=== PATIENT | female | born 1950 | race Caucasian/White ===

== ENCOUNTER 2016-12-23 18:39 | Emergency (ER) | payer MEDICARE, MEDICAID ==
[2016-12-23] MEDS ORDERED: NS 0.9% 1000 ML* 1,000 ML IV ONE (19:39)
--- NOTE | 2016-12-23 20:29 | ED ---
Kel Bonner Adam, scribed for Jerome Broderick MD on 12/23/16 at 1942 . Complex/Multi-Sys Presentation - HPI Summary HPI Summary: Pt is a 66 year old female presenting with general malaise and multiple complaints for over a week. She c/o nausea, AGUILAR, weakness, fatigue, dizziness, abdominal pain/distension, BLE cramps, and a taste of ammonia in her mouth. She states that the abdominal pain feels like a "high girdle wrapping under (her) breasts" and is worse on the left side. The pain is worse after eating. She denies fever. Pt has Hx of lupus and she last saw her doctor at [facility] 5 months ago. She also takes hydrocodone for chronic back pain/fibromyalgia. - History Of Current Complaint Chief Complaint: EDAbdPain Time Seen by Provider: 12/23/16 19:31 Hx Obtained From: Patient Onset/Duration: Gradual Onset, Lasting Weeks, Still Present Timing: Constant Severity Currently: Moderate Severity Initially: Moderate Location: Pain At: - Head, abdomen, lower extremities Aggravating Factor(s): Eating aggravates abdominal pain Alleviating Factor(s): Nothing Associated Signs And Symptoms: Positive: Headache, Nausea, Abdominal Pain - Allergies/Home Medications Allergies/Adverse Reactions: Allergies Allergy/AdvReac Type Severity Reaction Status Date / Time Clarithromycin [From Biaxin] Allergy Unknown Verified 05/20/16 11:30 Reaction Details Cyclobenzaprine Allergy Unknown Verified 05/20/16 11:30 [From Flexeril] Reaction Details Gabapentin Allergy Insomnia Verified 05/20/16 11:30 Meperidine [From Demerol HCl] Allergy Unknown Verified 05/20/16 11:30 Reaction Details Morphine Allergy Unknown Verified 05/20/16 11:30 Reaction Details Oxycodone Allergy Hives Verified 05/20/16 11:30 [From Oxycodone W/Acetaminophen] Prednisone Allergy See Comment Verified 05/20/16 11:30 Topiramate Allergy Unknown Verified 05/20/16 11:30 Reaction Details PMH/Surg Hx/FS Hx/Imm Hx Endocrine/Hematology History: Reports: Hx Systemic Lupus Erythematosus Denies: Hx Anticoagulant Therapy, Hx Diabetes, Hx Thyroid Disease Cardiovascular History: Reports: Hx Angina Denies: Hx Coronary Artery Disease, Hx Hypercholesterolemia, Hx Hypertension , Hx Myocardial Infarction, Hx Pacemaker/ICD, Hx Valvular Heart Disease Respiratory History: Denies: Hx Asthma, Hx Chronic Obstructive Pulmonary Disease (COPD) GI History: Reports: Hx Gastroesophageal Reflux Disease History: Denies: Hx Renal Disease Musculoskeletal History: Reports: Hx Back Problems Neurological History: Denies: Hx Dementia, Hx Seizures Psychiatric History: Reports: Hx Eating Disorder - anorexic; pt stated this is not happening now Denies: Hx Substance Abuse - Cancer History Cancer Type, Location and Year: breast CA; x2 mastectomy on left breast; lumpectomy and reduction - Surgical History Surgery Procedure, Year, and Place: Breast removal and augmentation. Back surgery. Scalp surgery to remove skin cancer. Wrist surgery for ulnarneuropathy - Immunization History Date of Tetanus Vaccine: UNKNOWN Date of Influenza Vaccine: NO Infectious Disease History: No Infectious Disease History: Reports: Hx Shingles - not active. "just getting over" Denies: Hx Hepatitis, Hx Human Immunodeficiency Virus (HIV), Traveled Outside the [place] in Last 30 Days - Family History Known Family History: Positive: Diabetes, Renal Disease - Social History Occupation: Unemployed Lives: With Family - Friend male Alcohol Use: None Hx Substance Use: No Substance Use Type: Reports: None Hx Tobacco Use: Yes Smoking Status (MU): Heavy Every Day Tobacco Smoker Type: Cigarettes Review of Systems Positive: Fatigue. Negative: Fever Positive: Abdominal Pain - and distension, Nausea Positive: Other - Cramps in lower extremities Neurological: Other - Dizziness Positive: Headache, Weakness All Other Systems Reviewed And Are Negative: Yes Physical Exam Triage Information Reviewed: Yes Vital Signs On Initial Exam: Initial Vitals Temp Pulse Resp BP Pulse Ox 98.2 F 105 18 120/72 100 12/23/16 18:43 12/23/16 18:43 12/23/16 18:43 12/23/16 18:43 12/23/16 18:43 Vital Signs Reviewed: Yes Appearance: Positive: Well-Appearing, No Pain Distress Skin: Positive: Warm Head/Face: Positive: Normal Head/Face Inspection Eyes: Positive: EDWARD ENT: Positive: Hearing grossly normal Neck: Positive: Supple Respiratory/Lung Sounds: Positive: Clear to Auscultation, Breath Sounds Present Cardiovascular: Positive: RRR Abdomen Description: Positive: Nontender, No Organomegaly, Soft Bowel Sounds: Positive: Present Musculoskeletal: Positive: Strength/ROM Intact Neurological: Positive: Sensory/Motor Intact, Alert, Oriented to Person Place, Time Psychiatric: Positive: Affect/Mood Appropriate Diagnostics - Vital Signs Vital Signs Temp Pulse Resp BP Pulse Ox 12/23/16 18:43 98.2 F 105 18 120/72 100 - Laboratory Result Diagrams: 12/23/16 21:50 12/23/16 21:50 Lab Statement: Any lab studies that have been ordered have been reviewed, and results considered in the medical decision making process. - EKG 22:37 Cardiac Rate: NL - 80 BPM EKG Rhythm: Sinus Rhythm - Normal - Additional Comments Diagnostic Additional Comments: Troponin I - 0.01 Influenza A (Rapid) - Negative Influenza B (Rapid) - Negative Re-Evaluation - Re-Evaluation First Eval Re-Evaluation Time: 22:48 Change: Improved Comment: results d/w pt Complex Multi-Symp Course/Dx - Diagnoses Provider Diagnoses: Abdominal pain Discharge - Discharge Plan Condition: Improved Disposition: HOME Patient Education Materials: Abdominal Pain (ED) Referrals: Dre Caicedo MD [Medical Doctor] - Additional Instructions: Follow up with Dr. Caicedo. The documentation as recorded by the Kel cadet Adam accurately reflects the service I personally performed and the decisions made by me, Jerome Broderick MD.
[2016-12-23 22:06] LABS: Hematocrit 42 % (35-47); Hemoglobin 13.6 g/dl (12.0-16.0); Mean Corpuscular HGB Conc 32 g/dl (31-36); Mean Corpuscular Hemoglobin 28 pg (27-31); Mean Corpuscular Volume 86 fL (80-97); Mean Platelet Volume 8 um3 (7.4-10.4); Red Blood Count 4.88 10^6/ul (4.0-5.4); Red Cell Distribution Width 14 % (10.5-15); White Blood Count 8.3 10^3/ul (3.5-10.8)
[2016-12-23 22:18] LABS: Troponin I 0.01 ng/mL (<0.04)
[2016-12-23 22:26] LABS: Albumin 4.4 g/dL (3.2-5.2); Calcium 10.2 mg/dL (8.6-10.3); EGFR African American 91.3 (>60); Globulin 3.3 g/dL (2-4); Magnesium 2.1 mg/dL (1.9-2.7); Potassium 4.3 mmol/L (3.5-5.0); Total Bilirubin 0.3 mg/dL (0.2-1.0); Total Protein 7.7 g/dL (6.4-8.9)
[2016-12-23 22:53] LABS: TSH (Thyroid Stimulating Horm) 0.87 mcIU/mL (0.34-5.60)
[2016-12-24 00:21] VITALS: BP 130/74
== END 2016-12-24 00:19 | disposition home or self-care (01) ==
LOC: ED 18:39
DX: R11.0 Nausea (principal); R10.9 Unspecified abdominal pain; R53.83 Other fatigue; R51 Headache; R53.1 Weakness; F17.210 Nicotine dependence, cigarettes, uncomplicated
CPT/HCPCS: 36415; 80053; 83605; 83735; 84443; 84484; 85025; 87502; 93005; 99282

== ENCOUNTER 2017-06-21 09:51 | Emergency (ER) | payer MEDICARE, MEDICAID ==
[2017-06-21 09:58] VITALS: BP 144/81
--- NOTE | 2017-06-21 11:11 | RAD ---
INDICATION: LEFT lateral and posterior chest/scapular pain and painful inspiration post fall several days ago. COMPARISON: February 23, 2014 chest radiograph. TECHNIQUE: Dual energy PA and routine lateral views of the chest were obtained. REPORT: Elevated lung volumes and both diffuse mild prominence of the interstitial markings and patchy rarefaction of the mid to upper lung zone interstitial markings. No focal pulmonary lesion, compelling alveolar consolidation, pleural effusion, pneumothorax. Negative for cardiomegaly. Unremarkable central pulmonary vasculature. Bone density appears decreased throughout. No rib or other thoracic fracture evident. LEFT breast and axillary surgical clips. IMPRESSION: 1. No traumatic thoracic injury evident. 2. Stigmata of chronic obstructive pulmonary disease and emphysema. 3. Bone density appears decreased. Consider follow-up DEXA scan.
--- NOTE | 2017-06-21 12:28 | ED ---
Talia Bonner Emily, scribed for Rickey Nicholson MD on 06/21/17 at 1013 . Complex/Multi-Sys Presentation - HPI Summary HPI Summary: This patient is a 66 year old F presenting to [facility] s/p a fall 4 days ago. She fell chest first while walking her dog. The pain radiates through her left breast, upper, middle back, and left flank. She describes the pain as it felt like when I fractured my rib. The patient rates the pain 8/10 in severity. Symptoms alleviated by Ibuprofen. Patient reports CP (left and posterior), dyspnea (sharp pain on left side), constipation, left shoulder pain, and left shoulder swelling. - History Of Current Complaint Chief Complaint: EDChestWallPain Time Seen by Provider: 06/21/17 10:08 Hx Obtained From: Patient Onset/Duration: Sudden Onset, Lasting Days - 4, Still Present Timing: Constant Severity Currently: Severe Severity Initially: Severe Location: Radiates To: - Left breast, upper middle back, left flank. Alleviating Factor(s): Ibuprofen Associated Signs And Symptoms: Positive: Other - CP (left and posterior), dyspnea (sharp pain on left side), constipation, left shoulder pain, left shoulder swelling. - Allergies/Home Medications Allergies/Adverse Reactions: Allergies Allergy/AdvReac Type Severity Reaction Status Date / Time Clarithromycin [From Biaxin] Allergy Unknown Verified 05/20/16 11:30 Reaction Details Cyclobenzaprine Allergy Unknown Verified 05/20/16 11:30 [From Flexeril] Reaction Details Gabapentin Allergy Insomnia Verified 05/20/16 11:30 Meperidine [From Demerol HCl] Allergy Unknown Verified 05/20/16 11:30 Reaction Details Morphine Allergy Unknown Verified 05/20/16 11:30 Reaction Details Oxycodone Allergy Hives Verified 05/20/16 11:30 [From Oxycodone W/Acetaminophen] Prednisone Allergy See Comment Verified 05/20/16 11:30 Topiramate Allergy Unknown Verified 05/20/16 11:30 Reaction Details PMH/Surg Hx/FS Hx/Imm Hx Endocrine/Hematology History: Reports: Hx Systemic Lupus Erythematosus Denies: Hx Anticoagulant Therapy, Hx Diabetes, Hx Thyroid Disease Cardiovascular History: Reports: Hx Angina Denies: Hx Coronary Artery Disease, Hx Hypercholesterolemia, Hx Hypertension , Hx Myocardial Infarction, Hx Pacemaker/ICD, Hx Valvular Heart Disease Respiratory History: Denies: Hx Asthma, Hx Chronic Obstructive Pulmonary Disease (COPD) GI History: Reports: Hx Gastroesophageal Reflux Disease History: Denies: Hx Renal Disease Musculoskeletal History: Reports: Hx Back Problems Neurological History: Denies: Hx Dementia, Hx Seizures Psychiatric History: Reports: Hx Eating Disorder - anorexic; pt stated this is not happening now Denies: Hx Substance Abuse - Cancer History Cancer Type, Location and Year: breast CA; x2 mastectomy on left breast; lumpectomy and reduction - Surgical History Surgery Procedure, Year, and Place: Breast removal and augmentation. Back surgery. Scalp surgery to remove skin cancer. Wrist surgery for ulnarneuropathy - Immunization History Date of Tetanus Vaccine: UNKNOWN Date of Influenza Vaccine: NO Infectious Disease History: Reports: Hx Shingles - not active. "just getting over" Denies: Hx Hepatitis, Hx Human Immunodeficiency Virus (HIV), Traveled Outside the [place] in Last 30 Days - Family History Known Family History: Positive: Diabetes, Renal Disease - Social History Alcohol Use: None Hx Substance Use: No Substance Use Type: Reports: None Hx Tobacco Use: Yes Smoking Status (MU): Heavy Every Day Tobacco Smoker Type: Cigarettes Review of Systems Positive: Chest Pain Positive: Other - Dyspnea. Positive: Other - Constipation. Positive: Other - Fall, left shoulder pain. Left shoulder swelling. All Other Systems Reviewed And Are Negative: Yes Physical Exam Triage Information Reviewed: Yes Vital Signs On Initial Exam: Initial Vitals Temp Pulse Resp BP Pulse Ox 97.6 F 80 19 144/81 100 06/21/17 09:53 06/21/17 09:53 06/21/17 09:53 06/21/17 09:53 06/21/17 09:53 Vital Signs Reviewed: Yes Appearance: Positive: Well-Appearing, No Pain Distress Skin: Positive: Warm, Skin Color Reflects Adequate Perfusion, Dry Head/Face: Positive: Normal Head/Face Inspection Eyes: Positive: Normal ENT: Positive: Normal ENT inspection Neck: Positive: Supple, Nontender Respiratory/Lung Sounds: Positive: Clear to Auscultation, Breath Sounds Present Cardiovascular: Positive: RRR Abdomen Description: Positive: Nontender, Soft Bowel Sounds: Positive: Present Musculoskeletal: Positive: Other - Tenderness at anterior and lateral chest wall. Neurological: Positive: Normal, Sensory/Motor Intact, Alert, Oriented to Person Place, Time, CN Intact II-III Psychiatric: Positive: Affect/Mood Appropriate Diagnostics - Vital Signs Vital Signs Temp Pulse Resp BP Pulse Ox 06/21/17 09:53 97.6 F 80 19 144/81 100 - Laboratory Lab Statement: Any lab studies that have been ordered have been reviewed, and results considered in the medical decision making process. - Radiology CXR Radiology Interpretation Completed By: Radiologist - 1. No traumatic thoracic injury evident. 2. Stigmata of chronic obstructive pulmonary disease and emphysema. 3. Bone density appears decreased. Consider follow-up DEXA scan. ED physician has reviewed this radiology report and agrees. Complex Multi-Symp Course/Dx Course Of Treatment: MS. Schneider fell 4 days ago and hit the left side of her chest. It has been getting worse since and has affected her breathing. Her W/ U was negative here and her vitals stable and she was reassured. - Diagnoses Provider Diagnoses: Chest wall pain, Rib injury Discharge - Discharge Plan Condition: Stable Disposition: HOME Patient Education Materials: Chest Wall Pain (ED), Rib Contusion (ED) Referrals: Dre Caicedo MD [Primary Care Provider] - 3 Days The documentation as recorded by the Talia cadet Emily accurately reflects the service I personally performed and the decisions made by me, Rickey Nicholson MD.
== END 2017-06-21 12:07 | disposition home or self-care (01) ==
LOC: ED 09:51
DX: R07.89 Other chest pain (principal); S29.9XXA Unspecified injury of thorax, initial encounter; Y92.9 Unspecified place or not applicable; Y93.9 Activity, unspecified; W19.XXXA Unspecified fall, initial encounter; M79.89 Other specified soft tissue disorders; R06.00 Dyspnea, unspecified; K59.00 Constipation, unspecified; M25.512 Pain in left shoulder
CPT/HCPCS: 71020; 99281

== ENCOUNTER → 2017-07-23 11:43 | Day surgery (SDC) | payer MEDICARE, MEDICAID ==
[~2017-07-23 11:43] MED LIST: Bacitracin OINTMENT* 1 TUBE ONE; Buffered Lidocaine 0.9% SYRIN* 5 ML/SYR SYRINGE INTRADERM ONE; Buffered Lidocaine 0.9% SYRIN* 5 ML/SYR SYRINGE ONE; Famotidine IV* 10 MG/ML 2 ML (20 mg) IV ONE; Famotidine IV* 10 MG/ML 2 ML (20 mg) ONE; HYDROcodone/ACETAMIN 5-325 MG* 1 TAB ONE; HYDROcodone/ACETAMIN 5-325 MG* 1 TAB PO PRN; Hydrocortisone INJ* 100 MG VIAL IV ONE; Hydrocortisone INJ* 100 MG VIAL ONE; Lidocaine 1% MPF wEPI 200,000* 30 ML SDV ONE; Lidocaine 4% TOPICAL* 50 ML TOP.SOLN ONE; Ondansetron INJ* 2 MG/ML VIAL ONE; Oxymetazoline 0.05% NASAL SPR* 15 ML BTL ONE; PROCHLORPERAZINE INJ 5 MG/ML 2 ML VIAL IV PRN; Phenylephrine IV* 40 MCG/ML 10 ML SYRINGE ONE; Propofol* 10 MG/ML 20 ML BTL IV PUSH ONE; fentaNYL* 50 MCG/ML 2 ML VIAL (100 MCG VIAL) IV PRN; fentaNYL* 50 MCG/ML 2 ML VIAL (100 MCG VIAL) ONE
[2017-07-23 15:02] VITALS: BP 149/78
--- NOTE | 2017-07-24 01:02 | OP ---
DATE OF OPERATION: 07/23/17 - SDS DATE OF : 52 SURGEON: Gareth Seay MD. ANESTHESIOLOGIST: Wanda Oreilly MD ANESTHESIA: General laryngeal mask anesthesia. PRE-OP DIAGNOSIS: Chronic maxillary ethmoidal sinusitis. POST-OP DIAGNOSIS: Chronic maxillary ethmoidal sinusitis. OPERATIVE PROCEDURE: Bilateral endoscopic sinus surgery with maxillary antrostomies with debridement of tissue and anterior ethmoidectomies under general laryngeal mask anesthesia. COMPLICATIONS: None. SPECIMENS: Left and right sinus contents. DESCRIPTION OF PROCEDURE: The patient was taken to the operating room, placed in a supine position on the operating room table, maintained with laryngeal mask airway anesthesia. Her noses were packed bilaterally with cottonoids impregnated with oxymetazoline and 4% lidocaine. She was draped for the surgery. The packs were removed and everything was done under endoscopic guidance bilaterally. The middle turbinate uncinate process, lateral wall, anterior ethmoid bullae were all injected with 1% lidocaine with 1:100,000 epinephrine and the middle turbinates were medialized. A curved seeker was used to the location of the maxillary ostium. The back-biter was used to make a cut on the low portion of the uncinate process. The up-biters were used to debride the uncinate process. Some thickened mucosa was used to widen the ostium of the maxillary sinus. A curette was used to enter the anterior ethmoid bulla and the spicules were debrided with a Blakesley. Stammberger Sinu- Foam was placed bilaterally in the ostiomeatal unit. The patient tolerated the procedure well, no complications, and transferred to the recovery room in stable condition. [id number]/[facility] #: [id number] [facility]
== END | disposition home or self-care (01) ==
LOC: OR 11:43
PROVIDERS: ATTEND Otolaryngology
DX: J32.0 Chronic maxillary sinusitis (principal); J32.2 Chronic ethmoidal sinusitis; I10 Essential (primary) hypertension; J44.9 Chronic obstructive pulmonary disease, unspecified; F17.210 Nicotine dependence, cigarettes, uncomplicated; M32.9 Systemic lupus erythematosus, unspecified
CPT/HCPCS: A9270-GY; J1720; J2001; J2405; J2704; J3010

== ENCOUNTER → 2019-07-11 | Day surgery (SDC) | payer MEDICARE, MEDICAID ==
[~2019-07-11] MED LIST changes: -Bacitracin OINTMENT* 1 TUBE ONE; -Buffered Lidocaine 0.9% SYRIN* 5 ML/SYR SYRINGE INTRADERM ONE; -Buffered Lidocaine 0.9% SYRIN* 5 ML/SYR SYRINGE ONE; +Bupivacaine 0.25% W/EPI* 10 ML SDV ONE; +Dexamethasone IV* 4 MG/ML 1 ML (4 MG) ONE; +DiMENhydriNATE IV* 50 MG/ML VIAL IV PUSH PRN; -Famotidine IV* 10 MG/ML 2 ML (20 mg) IV ONE; +HYDROmorphone INJ1* 1 MG/ML SYRINGE IV PRN; +HYDROmorphone INJ1* 1 MG/ML SYRINGE IV SLOW PU PRN; -Hydrocortisone INJ* 100 MG VIAL IV ONE; -Hydrocortisone INJ* 100 MG VIAL ONE; +Iohexol 300* (CONTRAST) 10 ML SDV IV ONE; +KETAMINE HCL* 50 MG/ML 10 ML VIAL ONE; +Lactated Ringers 1000 ML Bag* 1,000 ML IV SCH; -Lidocaine 1% MPF wEPI 200,000* 30 ML SDV ONE; +Lidocaine 2% PF * 5 ML VIAL ONE; -Lidocaine 4% TOPICAL* 50 ML TOP.SOLN ONE; +Midazolam* 1 MG/ML 5 ML VIAL (5 MG) ONE; +Morphine 4 MG/ML VIAL (1 ml) 4 MG/ML VIAL IV ONE; +NS 0.9% 1000 ML** 1,000 ML IV ONE; +Naloxone* 0.4 MG/ML 1 ML VIAL IV PRN; +Ondansetron INJ* 2 MG/ML VIAL IV PRN; -Ondansetron INJ* 2 MG/ML VIAL ONE; -Oxymetazoline 0.05% NASAL SPR* 15 ML BTL ONE; +PROCHLORPERAZINE INJ 5 MG/ML 2 ML VIAL ONE; -Phenylephrine IV* 40 MCG/ML 10 ML SYRINGE ONE; -Propofol* 10 MG/ML 20 ML BTL IV PUSH ONE; +Propofol* 10 MG/ML 20 ML BTL ONE; +Rocuronium* 10 MG/ML VIAL ONE; +Sugammadex * 500 MG/5 ML VIAL IV PUSH ONE; +ceFOXitin 2 GM IVPREMIX* 2 GM/50 ML BAG IVPB ONE; +ceFOXitin 2 GM IVPREMIX* 2 GM/50 ML BAG ONE; -fentaNYL* 50 MCG/ML 2 ML VIAL (100 MCG VIAL) IV PRN
[2019-07-11 12:49] LABS: ABS Eosinophils 0.2 10^3/ul (0-0.6); ABS Lymphocytes 1.4 10^3/ul (1.0-4.8); ABS Monocytes 0.7 10^3/ul (0-0.8); Eosinophil % 2.2 %; Hematocrit 37 % (35-47); Hemoglobin 12.2 g/dL (12.0-16.0); Lymphocyte % 13.6 %; Mean Corpuscular HGB Conc 33 g/dL (31-36); Mean Corpuscular Hemoglobin 29 pg (27-31); Mean Corpuscular Volume 87 fL (80-97); Mean Platelet Volume 8.6 fL (7.4-10.4); Platelet Count 243 10^3/uL (150-450); Red Blood Count 4.23 10^6 /uL (3.70-4.87); Red Cell Distribution Width 14 % (10-15); White Blood Count 10.3 10^3/uL (3.5-10.8)
[2019-07-11 13:04] LABS: Albumin 3.9 g/dL (3.2-5.2); Albumin/Globulin Ratio 1.5 (1-3); C Reactive Protein 36.3 mg/L (<8.01); Calcium 9.4 mg/dL (8.6-10.3); EGFR African American 96.2 (>60); EGFR Non-African American 79.5 (>60); Globulin 2.6 g/dL (2-4); Potassium 3.9 mmol/L (3.5-5.0); Total Bilirubin 0.5 mg/dL (0.2-1.0); Total Protein 6.5 g/dL (6.4-8.9)
--- OUTSIDE RECORDS SUMMARY | 2019-07-11 13:08 | XMS REPORT | Summary of Care ---
:1950 Author Organization [facility] Address [address] [facility] [place] [address] Care Team Providers Name Role Phone Dre Caicedo MD Primary Care Provider Reason for Visit Reason Comments Follow-up Follow-up to recent upper & lower endoscopies. Encounter Details Date Type Department Care Team Description 05/31/2019 Office Visit Angie Roberts Drug-induced Gastroenterology/Hepa Yumiko Toro NP constipation (Primary tology 1 [facility] Dx) [address] [facility] [place] [address] [place], [place] [id number] Allergies Active Allergy Reactions Severity Noted Date Comments Clarithromycin Other 05/04/2008 Demerol Other 11/17/2007 Cyclobenzaprine Other 08/08/2013 Morphine CORPORATE STRATEGY ASSOCIATE Reaction 04/24/2010 Vision bad; lethargy - muscles shake Alc-Gabapentin Unknown Reaction 09/30/2007 Fd&C Blue #2-Fd&C Red Unknown Reaction 09/30/2007 CHEST / AIRWAY #40-Oxycodone TIGHTNESS RASH Soybean Lecithin-Topiramate CORPORATE STRATEGY ASSOCIATE Reaction 07/25/2010 depression documented as of this encounter (statuses as of 06/01/2019) Medications Medication Sig Dispensed Refills Start Date End Date Status cholecalciferol Take 1 Tab 90 Tab 3 09/24/2015 Active (VITAMIN D) 1000 by mouth UNITS Oral Tab DAILY. clonazePAM (KLONOPIN) Take 1 Tab 30 Tab 0 03/24/2019 Active 0.5 MG Oral by mouth TWO TabIndications: TIMES DAILY Depression with NEEDED anxiety (anxiety ). Max Daily Amount: 1 mg. amphetamine-dextroamp Take 20 mg 60 Tab 0 04/17/2019 Active hetamine (ADDERALL) by mouth 20 MG Oral Tab TWICE DAILY. Max Daily Amount: 40 mg. Amphetamine-Dextroamp Take 1 Tab 60 Tab 0 05/15/2019 Active hetamine (ADDERALL, by mouth 15MG,) 15 MG Oral Tab TWICE DAILY. Max Daily Amount: 30 mg. HYDROcodone-acetamino Take 1 Tab 180 Tab 0 05/15/2019 Active phen (NORCO) 10-325 by mouth MG Oral EVERY FOUR TabIndications: HOURS Chronic pain disorder NEEDED (pain). Max Daily Amount: 6 Tabs. ranitidine (ZANTAC) Take 300 mg 30 Tab 3 05/31/2019 Active 300 MG Oral Tab by mouth DAILY. Omeprazole 40 MG Oral Take 1 Cap 30 Cap 3 05/09/2019 05/31/2019 Discontinued CAPSULE DELAYED by mouth RELEASE DAILY. linaCLOtide 72 MCG Take 1 Cap 30 Cap 0 05/09/2019 05/31/2019 Discontinued Oral Cap by mouth DAILY. 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 Overview: Right ulna TB lung, latent 12/25/2012 Systemic lupus erythematosus 12/04/2012 Overview: Erosions on xray but d/s DNA positive and VISHAL weak positive negative C3, C4 Rheumatology Dr Gasca [facility] Aldana Livedo reticularis 12/04/2012 Microscopic hematuria 10/06/2012 Overview: S/p cystoscopy [facility] negative 2009 Depression with anxiety 08/25/2012 Overview: Suicidal ideation 1990s treated fluoxitene, lexapro, venlafaxine, citalopram Failed buproprion due to mood swings Failed duloxitene in past Therapist [place] [facility] Fibromyalgia 08/11/2012 Overview: Failed lyrica Failed gabapentin Failed topiramate Lumbar disc disease 08/11/2012 Overview: S/p lumbar disc surgery Dr Garnica [facility] 2000 Tubulovillous adenoma of colon 08/29/2009 Overview: [place] adenoma- 2003 Colonoscopy negative 2009 Herpes zoster without mention of complication 12/14/2008 Osteopenia 05/04/2008 Overview: Bone density scan 10/2012 Tobacco use disorder 01/11/2008 Overview: 3/4 pack per day Began age 15 Chronic low back pain 11/17/2007 Overview: Herniated disc; surgery Dr Garnica 2001; failed topiramate and gabapentin in the past Attention deficit hyperactivity disorder (ADHD), 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 Overview: Diagnosis in her 50s by psychiatrist in [place], [place] Adderal maintenance therapy Breast CA 10/18/1999 Overview: 1998 s/p left mastectomy and s/p Tram flap No chemo or radiation SLE (systemic lupus erythematosus) documented as of this encounter (statuses as of 06/01/2019) Resolved Problems Problem Noted Date Resolved Date Bipolar disorder 10/19/2012 11/08/2012 Narcotic dependence 08/11/2012 10/19/2012 Overview: Hydrocodone 10 mg 6 per day Narcotic contract signed Dr Wills 07/29 Tapered off hydrocodone 09/2012 Rheumatoid arthritis(714.0) 04/27/2011 01/03/2013 Overview: Diagnosis made 2005 Response Prednisone seroneg Plaquenil and methotrexate 2008-06 [facility] [address] [place] last seen 2010 Anxiety 07/29/2009 08/25/2012 Unspecified constipation 05/04/2008 08/11/2012 Anorexia 11/17/2007 01/03/2013 documented as of this encounter (statuses as of 06/01/2019) Immunizations Name Administration Dates Next Due Influenza Vaccine High Dose 11/30/2017 Kenalog (80 mg) 06/05/2013, 03/24/2013 Pneumococcal Conjugate(13 Valent) 11/30/2017 documented as of this encounter Social History Tobacco Use Types Packs/Day Years Used Date Current Every Day Smoker Cigarettes 1 48 Smokeless Tobacco: Never Used Alcohol Use Drinks/Week oz/Week Comments No 0 Standard drinks or equivalent 0.0 coffee 1 cup per day Sex Assigned at Date Recorded Not on file Job Start Date Occupation Industry Not on file Not on file Not on file Travel History Travel Start Travel End No recent travel history available. documented as of this encounter Last Filed Vital Signs Vital Sign Reading Time Taken Comments Blood Pressure 104/70 05/31/2019 3:58 PM EDT Pulse 78 05/31/2019 3:58 PM EDT Temperature 36.4 05/31/2019 3:58 PM EDT C (97.5 F) Respiratory Rate - - Oxygen Saturation - - Inhaled Oxygen Concentration - - Weight 47.6 kg (105 lb) 05/31/2019 3:58 PM EDT Height 167.6 cm (5' 6") 05/31/2019 3:58 PM EDT Body Mass Index 16.95 05/31/2019 3:58 PM EDT documented in this encounter Patient Instructions Patient InstructionsWiYumiko cortez NP - 05/31/2019 3:40 PM EDT1. May stop the Omeprazole, will start Ranitidine 2. Increase the Linzess to 145mg daily 3. Follow up with your PCP to discuss your fatigue Thank you for choosing the [facility] for your needs today! -Yumiko Roberts NLemuelPLemuel , Please call if you need to cancel or change your appt. time. Thank you for choosing [facility] for your health care needs, and for consulting with [facility] today. You may receive a survey following this visit, or after an upcoming hospital stay. As easy as it is to feel overloaded with surveys, we are required to send them out randomly and they do provide important feedback so that we may serve your needs in the best way. Please do take the few minutes required to complete the survey if you receive one. We get them too, after seeing the doctor, and they only take a few minutes to complete. documented in this encounter Progress Notes Yumiko Roberts NP - 05/31/2019 3:40 PM EDT PATIENT: Lorie Schneider : 1950 DATE OF SERVICE: 05/31/2019 REFERRING PRACTITIONER: Yumiko Roberts PRIMARY CARE PROVIDER: Dre Caicedo CHIEF COMPLAINT: Chief Complaint Patient presents with Follow-up Follow-up to recent upper & lower endoscopies. Subjective HISTORY OF PRESENT ILLNESS: Lorie Schneider is a 68-y.o. female who presents for follow-up of recent endoscopies and chronic constipation. EGD was positive for gastritis, she was prescribed Omeprazole but is unwilling to start a medicationlike this due to feel of adverse side effects. Colonoscopy was positive for diverticula, and internal hemorrhoids otherwise unremarkable. CT abd/pelvis on 04/13/2019 was unremarkable. She reports continued constipation despite start of low dose Linzess. Denies abdominal pain,heartburn, dysphagia, nausea, vomiting, melena, hamatemesis, hematochezia, diarrhea, jaundice, fevers, chills, night sweats, easy bruising, chest pain, shortness of breath, dysuria, hematuria, pyuria, joint pains, acholic stools, dark urine or systemic pruritis. She reports continued weight loss, but admits that she is not eating much, reports early satiety. Has lost 20 lbs in the past 1 year. Current Outpatient Medications Medication Sig amphetamine-dextroamphetamine (ADDERALL) 20 MG Oral Tab Take 20 mg by mouth TWICE DAILY. Max Daily Amount: 40 mg. Amphetamine-Dextroamphetamine (ADDERALL, 15MG,) 15 MG Oral Tab Take 1 Tab by mouth TWICE DAILY. Max Daily Amount: 30 mg. cholecalciferol (VITAMIN D) 1000 UNITS Oral Tab Take 1 Tab by mouth DAILY. clonazePAM (KLONOPIN) 0.5 MG Oral Tab Take 1 Tab by mouth TWO TIMES DAILY NEEDED (anxiety ). Max Daily Amount: 1 mg. HYDROcodone-acetaminophen (NORCO) 10-325 MG Oral Tab Take 1 Tab by mouth EVERY FOUR HOURS ASNEEDED (pain). Max Daily Amount: 6 Tabs. ranitidine (ZANTAC) 300 MG Oral Tab Take 300 mg by mouth DAILY. No current facility-administered medications for this visit. Allergies Allergen Reactions Biaxin [Clarithromycin] Other Demerol Other Flexeril [Cyclobenzaprine] Other Morphine CORPORATE STRATEGY ASSOCIATE Reaction Vision bad; lethargy - muscles shake Neurontin [Alc-Gabapentin] Unknown Reaction Oxycodone [Fd&C Blue #2-Fd&C Red #40-Oxycodone] Unknown Reaction CHEST / AIRWAY TIGHTNESS RASH Topiramate [Soybean Lecithin-Topiramate] CORPORATE STRATEGY ASSOCIATE Reaction depression REVIEW OF SYSTEMS: All remaining review of systems was negative except for as noted in the history of present illness/subjective. Objective PHYSICAL EXAMINATION: VITALS: BP 104/70 | Pulse 78 | Temp 97.5 F (36.4 C) | Ht 5' 6" ( 1.676 m) | Wt 105 lb (47.6 kg) | BMI 16.95 kg/m Body mass index is 16.95 kg/m. GENERAL: alert, oriented, no acute distress. HEENT: No scleral icterus, MMM Psych: Affect normal Neck: no lymphadenopathy LUNGS: clear to auscultation bilaterally. HEART: regular rhythm, no murmurs, no gallops, no rubs. ABDOMEN: general exam: soft, non-tender, non-distended, without masses or organomegaly, normal active bowel sounds, Dias's sign negative. Extrmities: no edema Skin: clear Neuro: gait normal, a&o x 3 RECTAL: exam deferred. IMPRESSION: ICD-9-CM ICD-10-CM 1. 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 She was advised to use an acid spray gunner and eat smaller meals with frequent snacking throughout the day. She was also encouraged to supplement a nutritional shake, which she reports she is already doing. Plan PLAN: Patient Instructions 1. May stop the Omeprazole, will start Ranitidine 2. Increase the Linzess to 145mg daily 3. Follow up with your PCP to discuss your fatigue Thank you for choosing the [facility] for your needs today! -Yumiko Roberts N.P. , Please call if you need to cancel or change your appt. time. Thank you for choosing [facility] for your health care needs, and for consulting with [facility] today. You may receive a survey following this visit, or after an upcoming hospital stay. As easy as it is to feel overloaded with surveys, we are required to send them out randomly and they do provide important feedback so that we may serve your needs in the best way. Please do take the few minutes required to complete the survey if you receive one. We get them too, after seeing the doctor, and they only take a few minutes to complete. Author: Yumiko Roberts NP 06/01/2019 08:07 documented in this encounter Plan of Treatment Date Type Specialty Care Team Description 06/13/2019 Office Visit Family Practice Dre Caicedo MD [address] [id number] [phone] Health Maintenance Due Date Last Done Comments MEDICARE ANNUAL WELLNESS 1950 VISIT ZOSTER IMMUNIZATION SERIES 2001 (1 of 2) LUNG CANCER SCREENING 01/20/2017 01/21/2016 PNEUMOCOCCAL 65+YRS (2 of 2 11/30/2018 11/30/2017 - PPSV23) MAMMOGRAM (SCREENING) 12/29/2018 12/29/2017, 12/29/2017, 06/26/2016, Additional history exists INFLUENZA VACCINE (#1) 2019 11/30/2017 FALL RISK ASSESSMENT 07/26/2019 07/26/2018, 07/26/2018 DEPRESSION SCREENING 05/15/2020 05/15/2019, 02/24/2018 LIPID DISORDER SCREENING 03/28/2023 03/28/2018, 07/25/2010 COLONOSCOPY SCREENING 05/18/2024 05/18/2019, 05/18/2019, 05/21/2015, Additional history exists OSTEOPOROSIS SCREENING 06/26/2026 06/26/2016, 11/02/2012 HEPATITIS C SCREENING Completed 12/01/2012 HPV IMMUNIZATION SERIES Aged Out No longer eligible based on patient's age to complete this topic MENINGOCOCCAL VACCINE IMM Aged Out No longer eligible based on patient's age to complete this topic documented as of this encounter Goals Goal Patient Goal Associated Recent Patient-Stated? Author Type Problems Progress Depression Depression 23 No cecille Caicedo (PHQ-9) (02/24/2018 MD Dre total score < 5 3:09 PM EDT) Note: This is an individualized treatment (depression) goal for Lorie Schnieder: Displayed above is your goal for a depression screening (PHQ-9) score that would indicate good control of your depression. Keep a regular sleep schedule Lifestyle No Dre Caicedo MD Note: This is an individualized lifestyle goal for Lorie Schneider: Please maintain a regular sleep schedule. This may help with some symptoms of depression. Take all prescribed medications as directed Self-management No Dre Caicedo MD Note: This is an individualized self-management goal for Lorie Schneider: Please take all prescribed medications as directed. 1. Do not skip doses. If you cannot afford your medications, talk with your doctor. 2. Use a pill reminder system such as a pill box if needed. Your pharmacist can help you with this. 3. Contact your Pharmacy 5 days before your medication runs out. If you cannot take your medications for any reasons, talk with your doctor. 4. Please bring all of your medication bottles and inhalers (or a list of all your medications/inhalers) with you to every visit. Potential barriers to meeting all of your care plan goals will continue to be addressed on an ongoing basis. documented as of this encounter Results Not on filedocumented in this encounter Visit Diagnoses Diagnosis Drug-induced constipation - Primary Other constipation documented in this encounter Insurance Payer Benefit Plan / Subscriber ID Effective Dates Phone Address Type Group MEDICARE MEDICARE PART A xxxxxxxxxxx 2016-Present Medicare & B MEDICAID [facility] xxxxxxxx 2016-Present [place] (Work) documented as of this encounter
--- OUTSIDE RECORDS SUMMARY | 2019-07-11 13:08 | XMS REPORT | Summary of Care ---
:1950 Author Organization [facility] Address [address] [place] [address] Care Team Providers Name Role Phone Dre Caicedo MD Primary Care Provider Reason for Referral MRI/CAT/PET Scan (Routine) Status Reason Specialty Diagnoses / Procedures Referred By Referred To Contact Contact Authorized Diagnoses Spinal stenosis of lumbar region with neurogenic claudication Dre Caicedo MD Procedures MR LUMBAR SPINE WO CONTRAST [address] [place] [address] MRI/CAT/PET Scan (Routine) Status Reason Specialty Diagnoses / Referred By Referred To Procedures Contact Contact Authorized Diagnoses Weight loss Tobacco use disorder Dre Caicedo MD Procedures CT CHEST WITHOUT IV CONTRAST [address] [place] [address] MRI/CAT/PET Scan (Routine) Status Reason Specialty Diagnoses / Referred By Referred To Procedures Contact Contact Authorized Diagnoses Weight loss Dre Caicedo MD Procedures US SOFT TISSUE HEAD NECK ULTRASOUND [address] [facility] [place] [address] Reason for Visit Reason Comments Follow Up pt presents for follow up from previous visit, weight loss, states just doesn't "feel good" Encounter Details Date Type Department Care Team Description 06/13/2019 Office Visit [facility] Dre Caicedo MD Weight loss (Primary Dx); Practice [address] [facility] [address] [address] Chronic pain disorder; [address] [place] [address] Depression with anxiety; [place], [place] [id number] Spinal stenosis of lumbar region with neurogenic claudication; [phone] Tobacco use disorder Allergies Active Allergy Reactions Severity Noted Date Comments Clarithromycin Other 05/04/2008 Demerol Other 11/17/2007 Cyclobenzaprine Other 08/08/2013 Morphine SENIOR INSTRUMENTATION ENGINEER Reaction 04/24/2010 Vision bad; lethargy - muscles shake Alc-Gabapentin Unknown Reaction 09/30/2007 Fd&C Blue #2-Fd&C Red Unknown Reaction 09/30/2007 CHEST / AIRWAY #40-Oxycodone TIGHTNESS RASH Soybean Lecithin-Topiramate SENIOR INSTRUMENTATION ENGINEER Reaction 07/25/2010 depression documented as of this encounter (statuses as of 06/13/2019) Medications Medication Sig Dispensed Refills Start Date End Date Status cholecalciferol Take 1 Tab by 90 Tab 3 09/24/2015 Active (VITAMIN D) 1000 mouth DAILY. UNITS Oral Tab ranitidine (ZANTAC) Take 300 mg 30 Tab 3 05/31/2019 Active 300 MG Oral Tab by mouth DAILY. linaCLOtide 290 MCG Take 1 Cap by 30 Cap 3 06/09/2019 Active Oral Cap mouth DAILY. predniSONE TAKE ONE 3 05/09/2019 Active (DELTASONE) 5 MG TABLET BY Oral Tab MOUTH EVERY DAY USE 1 2 OR 1 TABLET BY MOUTH DAILY HALF-WAY mirtazapine Take 1 Tab by 30 Tab 0 06/13/2019 Active (REMERON) 15 MG Oral mouth EVERY Tab BEDTIME. mirtazapine Take 1 Tab by 30 Tab 1 06/13/2019 Active (REMERON) 15 MG Oral mouth EVERY Tab BEDTIME. HYDROcodone-acetamin Take 1 Tab by 180 Tab 0 06/13/2019 Active ophen (NORCO) 10-325 mouth EVERY MG Oral FOUR HOURS TabIndications: NEEDED Chronic pain (pain). Max disorder Daily Amount: 6 Tabs. Amphetamine-Dextroam Take 1 Tab by 60 Tab 0 06/13/2019 Active phetamine (ADDERALL, mouth TWICE 15MG,) 15 MG Oral DAILY. Max Tab Daily Amount: 30 mg. clonazePAM Take 1 Tab by 30 Tab 0 06/13/2019 Active (KLONOPIN) 0.5 MG mouth TWO Oral TabIndications: TIMES DAILY Depression with NEEDED anxiety (anxiety ). Max Daily Amount: 1 mg. clonazePAM Take 1 Tab by 30 Tab 0 03/24/2019 06/13/20 Discontinued (KLONOPIN) 0.5 MG mouth TWO 19 (Reorder) Oral TabIndications: TIMES DAILY Depression with NEEDED anxiety (anxiety ). Max Daily Amount: 1 mg. amphetamine-dextroam Take 20 mg by 60 Tab 0 04/17/2019 06/13/20 Discontinued phetamine (ADDERALL) mouth TWICE 19 20 MG Oral Tab DAILY. Max Daily Amount: 40 mg. Amphetamine-Dextroam Take 1 Tab by 60 Tab 0 05/15/2019 06/13/20 Discontinued phetamine (ADDERALL, mouth TWICE 19 (Reorder) 15MG,) 15 MG Oral DAILY. Max Tab Daily Amount: 30 mg. HYDROcodone-acetamin Take 1 Tab by 180 Tab 0 05/15/2019 06/13/20 Discontinued ophen (NORCO) 10-325 mouth EVERY 19 (Reorder) MG Oral FOUR HOURS TabIndications: NEEDED Chronic pain (pain). Max disorder Daily Amount: 6 Tabs. 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 Overview: Right ulna TB lung, latent 12/25/2012 Systemic lupus erythematosus 12/04/2012 Overview: Erosions on xray but d/s DNA positive and VISHAL weak positive negative C3, C4 Rheumatology Dr Gasca [facility] Aldana Livedo reticularis 12/04/2012 Microscopic hematuria 10/06/2012 Overview: S/p cystoscopy [facility] negative 2009 Depression with anxiety 08/25/2012 Overview: Suicidal ideation 1990s treated fluoxitene, lexapro, venlafaxine, citalopram Failed buproprion due to mood swings Failed duloxitene in past Therapist [place] [facility] Fibromyalgia 08/11/2012 Overview: Failed lyrica Failed gabapentin Failed topiramate Lumbar disc disease 08/11/2012 Overview: S/p lumbar disc surgery Dr Garnica [facility] 2000 Tubulovillous adenoma of colon 08/29/2009 Overview: [place] adenoma- 2004 Colonoscopy negative 2009 Herpes zoster without mention [...] Diagnosis in her 50s by psychiatrist in [place], [place] Adderal maintenance therapy Breast CA 10/18/1999 Overview: 1998 s/p left mastectomy and s/p Tram flap No chemo or radiation SLE (systemic lupus erythematosus) documented as of this encounter (statuses as of 06/13/2019) Resolved Problems Problem Noted Date Resolved Date Bipolar disorder 10/19/2012 11/08/2012 Narcotic dependence 08/11/2012 10/19/2012 Overview: Hydrocodone 10 mg 6 per day Narcotic contract signed Dr Wills 07/29 Tapered off hydrocodone 09/2012 Rheumatoid arthritis(714.0) 04/27/2011 01/03/2013 Overview: Diagnosis made 2005 Response Prednisone seroneg Plaquenil and methotrexate 2008-06 [facility] Rheumatology Dept Dr Lawton last seen 2010 Anxiety 07/29/2009 08/25/2012 Unspecified constipation 05/04/2008 08/11/2012 Anorexia 11/17/2007 01/03/2013 documented as of this encounter (statuses as of 06/13/2019) Immunizations Name Administration Dates Next Due Influenza Vaccine High Dose 11/30/2017 Kenalog (80 mg) 06/05/2013, 03/24/2013 Pneumococcal Conjugate(13 Valent) 11/30/2017 documented as of this encounter Social History Tobacco Use Types Packs/Day Years Used Date Current Every Day Smoker Cigarettes 1 48 Smokeless Tobacco: Never Used Tobacco Cessation: Ready to Quit: No; Counseling Given: Yes Alcohol Use Drinks/Week oz/Week Comments No 0 [...] Sign Reading Time Taken Comments Blood Pressure 108/68 06/13/2019 1:59 PM EDT Pulse 94 06/13/2019 1:59 PM EDT Temperature - - Respiratory Rate - - Oxygen Saturation 95% 06/13/2019 1:59 PM EDT Inhaled Oxygen Concentration - - Weight 50.3 kg (110 lb 12.8 oz) 06/13/2019 1:59 PM EDT Height 167.6 cm (5' 6") 06/13/2019 1:59 PM EDT Body Mass Index 17.88 06/13/2019 1:59 PM EDT documented in this encounter Progress Notes Dre Caicedo MD - 06/13/2019 1:40 PM EDT PATIENT: Lorie Schneider : 1950 DATE OF SERVICE: 06/13/2019 CHIEF COMPLAINT: Chief Complaint Patient presents with Follow Up pt presents for follow up from previous visit, weight loss, states just doesn' t "feel good" Subjective HISTORY OF PRESENT ILLNESS: Lorie Schneider is a 68-y.o. female. She continues to have weight loss. When I saw her last we were looking for a reason for the weight loss labs ok including sed rate CT abd pelvis suggested maybe something in the colon and she was constipated so she saw GI. They did not find anything on colonoscopy and cbc ok . EGD gastritis and she is on zantac after refusing PPIbut not enough to cause weight loss She felt the weight loss due to her pristiq , she is off it and on nothing else and she feels poor.Worst she ever felt. Anxiety is high She wants klonopin refill. Appetite poor I cut her adderall to 15 bid last time she told me last time that was the one med that helps her She does have low back pain , legs not working, they ache , when she tries to walk pain in back and legs Abdomen feels painful and swollen but no other B or B symptoms Past Medical History: Diagnosis Date Allergic rhinitis Anxiety therapy Arthritis RA ?? blood work neg and OA hands wrist , elbow shoulder , knees hip Attention deficit disorder with hyperactivity(314.01) 04/25/2007 Blood in urine .gee negative Breast CA (HCC) 10/18/1999 Tram flap s/p mastectomy Chronic low back pain 11/17/2007 Herniated disc; surgery Dr Garnica 2001 Diverticulosis 2019 hemorrhoids-poor prep Fibromyalgia 08/11/2012 Fractures ribs Gastritis 2019 EGD GERD (gastroesophageal reflux disease) Headache(784.0) ex migraine History of breast surgery left mastectomy left arlet bx x2 Osteoarthritis Osteopenia but high risk due to smoking, prednisone etc. Polyarthritis, inflammatory (HCC) Positive PPD treated Postmenopausal PVD (peripheral vascular disease) (HCC) Shingles SLE (systemic lupus erythematosus) (HCC) Tubulovillous adenoma of colon 08/29/2009 tics in 2014 5 years Unspecified constipation 05/04/2008 Urinary incontinence Vitamin D deficiency Family History Problem Relation Age of Onset Diabetes Mother Hypertension Mother Heart Failure Mother Heart Mother Blood Disease Mother Heart Father Diabetes Maternal Uncle Breast Cancer Paternal Aunt 60s Current Outpatient Medications Medication Sig Amphetamine-Dextroamphetamine (ADDERALL, 15MG,) 15 MG Oral Tab [...] ASNEEDED (pain). Max Daily Amount: 6 Tabs. linaCLOtide 290 MCG Oral Cap Take 1 Cap by mouth DAILY. mirtazapine (REMERON) 15 MG Oral Tab Take 1 Tab by mouth EVERY BEDTIME. mirtazapine (REMERON) 15 MG Oral Tab Take 1 Tab by mouth EVERY BEDTIME. predniSONE (DELTASONE) 5 MG Oral Tab TAKE ONE TABLET BY MOUTH EVERY DAY USE 1 2 OR 1 TABLET BY MOUTH DAILY HALF-WAY ranitidine (ZANTAC) 300 MG Oral Tab Take 300 mg by mouth DAILY. No current facility-administered medications for this visit. Allergies Allergen Reactions Biaxin [Clarithromycin] Other Demerol Other Flexeril [Cyclobenzaprine] Other Morphine SENIOR INSTRUMENTATION ENGINEER Reaction Vision bad; lethargy - muscles shake Neurontin [Alc-Gabapentin] Unknown Reaction Oxycodone [Fd&C Blue #2-Fd&C Red #40-Oxycodone] Unknown Reaction CHEST / AIRWAY TIGHTNESS RASH Topiramate [Soybean Lecithin-Topiramate] SENIOR INSTRUMENTATION ENGINEER Reaction depression Social History Socioeconomic History Marital status: Single Spouse name: Not on file Number of children: Not on file Years of education: Not on file Highest education level: Not on file Occupational History Not on file Social Needs Financial resource strain: Not on file Food insecurity: Worry: Not on file Inability: Not on file Transportation needs: Medical: Not on file Non-medical: Not on file Tobacco Use Smoking status: Current Every Day Smoker Packs/day: 1.00 Years: 48.00 Pack years: 48.00 Types: Cigarettes Smokeless tobacco: Never Used Substance and Sexual Activity Alcohol use: No Alcohol/week: 0.0 standard drinks Comment: coffee 1 cup per day Drug use: No Types: Prescription Sexual activity: Never Lifestyle Physical activity: Days per week: Not on file Minutes per session: Not on file Stress: Not on file Relationships Social connections: Talks on phone: Not on file Gets together: Not on file Attends mormon service: Not on file Active member of club or organization: Not on file Attends meetings of clubs or organizations: Not on file Relationship status: Not on file Intimate partner violence: Fear of current or ex partner: Not on file Emotionally abused: Not on file Physically abused: Not on file Forced sexual activity: Not on file Other Topics Concern Back Care Not Asked Bike Helmet Not Asked Blood Transfusions Not Asked Caffeine Concern Not Asked Exercise No Hobby Hazards Not Asked International Travel Not Asked Service Not Asked Occupational Exposure Not Asked Seat Belt Not Asked Self-Exams Not Asked Sleep Concern Not Asked Special Diet Not Asked Stress Concern Not Asked Weight Concern Not Asked Social History Narrative Lives with male partner in [place], [place] One grown daughter age 23 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 Neurological: Negative for dizziness. Headaches: occasional. Objective PHYSICAL EXAM: VITALS: BP 108/68 (BP Location: Right arm, Patient Position: Sitting) | Pulse 94 | Ht 5' 6" (1.676 m) | Wt 110 lb 12.8 oz (50.3 kg) | SpO2 95% | BMI 17.88 kg/m Body mass index is 17.88 kg/m. Physical Exam Constitutional: No distress (up 5 lb). HENT: Mouth/Throat: Oropharynx is clear and moist. Neck: Neck supple. No thyromegaly present. Cardiovascular: Normal rate and regular rhythm. Pulmonary/Chest: Effort normal and breath sounds normal. No respiratory distress. Musculoskeletal: She exhibits no edema. Lymphadenopathy: She has no cervical adenopathy. Neurological: Non focal No drift DTR equal equal strength normal SLR Psychiatric: Dress and hygiene good Good eye contact Thoughts and speech normal Affect Appropriate Mood same Vitals reviewed. ASSESSMENT / IMPRESSION: ICD-9-CM ICD-10-CM 1. Weight loss maybe just due to meds and her tobacco, depression but could be a malignancy so widenthe search with CT chest and ultrasound and more labs 783.21 R63.4 CBC WITH DIFFERENTIAL SEDIMENTATION RATE PROTEIN ELECTRO, SERUM REFLEX THYROID STIMULATING HORMONE COMPREHENSIVE METABOLIC PANEL LEAD, BLOOD LEAD, BLOOD LACTATE DEHYDROGENASE US SOFT TISSUE HEAD NECK ULTRASOUND CT CHEST WITHOUT IV CONTRAST 2. Chronic pain disorder refill norco 338.4 G89.4 HYDROcodone-acetaminophen ( NORCO) 10-325 MG Oral Tab 3. Depression with anxiety add remeron to stimulate appetite. Keep adderall same for now 300.4 F41.8 clonazePAM (KLONOPIN) 0.5 MG Oral Tab 4. Spinal stenosis of lumbar region with neurogenic claudication get mri L spine 724.03 M48.062 MR LUMBAR SPINE WO CONTRAST 5. Tobacco use disorder 305.[address] CHEST WITHOUT IV CONTRAST Ready to quit: No Counseling given: Yes Plan Author: Dre Caicedo MD 06/13/2019 21:04 documented in this encounter Plan of Treatment Date Type Specialty Care Team Description 07/10/2019 Office Visit Family Practice Dre Caicedo MD [address] [place] [address] [phone] Name Type Priority Associated Diagnoses Date/Time CBC WITH DIFFERENTIAL Lab Routine Weight loss 06/13/2019 2:47 PM EDT SEDIMENTATION RATE Lab Routine Weight loss 06/13/2019 2:47 PM EDT PROTEIN ELECTRO, SERUM Lab Routine Weight loss 06/13/2019 2:47 PM EDT REFLEX THYROID STIMULATING HORMONE Lab Routine Weight loss 06/13/2019 2:47 PM EDT COMPREHENSIVE METABOLIC Lab Routine Weight loss 06/13/2019 2:47 PM EDT PANEL LEAD, BLOOD Lab Routine Weight loss 06/13/2019 2:47 PM EDT LEAD, BLOOD Lab Routine Weight loss 06/13/2019 2:47 PM EDT Name Type Priority Associated Diagnoses Order Schedule LACTATE DEHYDROGENASE Lab Routine Weight loss Ordered: 06/13/2019 US SOFT TISSUE HEAD NECK Imaging Routine Weight loss Expected: ULTRASOUND 06/13/2019, Expires: 06/12/2020 CT CHEST WITHOUT IV Imaging Routine Weight loss Expected: CONTRAST Tobacco use disorder 06/13/2019, Expires: 06/12/2020 MR LUMBAR SPINE WO Imaging Routine Spinal stenosis of Expected: CONTRAST lumbar region with 06/13/2019, neurogenic claudication Expires: 06/12/2020 Health Maintenance Due Date Last Done Comments [...] an individualized treatment (depression) goal for Lorie Schneider: Displayed above is your goal for a [...] filedocumented in this encounter Visit Diagnoses Diagnosis Weight loss - Primary Loss of weight Chronic pain disorder Chronic pain syndrome Depression with anxiety Dysthymic disorder Spinal stenosis of lumbar region with neurogenic claudication Spinal stenosis, lumbar region, with neurogenic claudication Tobacco use disorder documented in this encounter Insurance Payer Benefit Plan / Subscriber ID Effective Dates Phone Address Type Group MEDICARE MEDICARE PART A xxxxxxxxxxx 2016-Present Medicare & B MEDICAID [facility] xxxxxxxx 2016-Present Medicaid [place] MEDICAID (Work) documented as of this encounter
--- OUTSIDE RECORDS SUMMARY | 2019-07-11 13:08 | XMS REPORT | Summary of Care ---
:1950 Author Organization [facility] Address [address] [place] [address] Care Team Providers Name Role Phone Dre Caicedo MD Primary Care Provider Qing Arias RN [facility] [employer] Equipment Service Technician Unavailable Reason for Referral Refer to Department Only (Routine) Status Reason Specialty Diagnoses / Referred By Referred To Procedures Contact Contact Authorized NEUROSURGERY / Diagnoses Spinal stenosis of lumbar region with neurogenic claudication Dre Caicedo Neurosurgery MD [address] [place] [address] Scheduling Instructions For Pituitary Masses: Refer to Endocinology and Ophthalmology for testing. Patients already having this testing should have an internal referral to Neurosurgery placed. For Suspected Normal Pressure Hydrocephalus: Refer to neurology for a dementia work up, have a large volume lumbar puncture (40 cc) performed. For incontinence, refer to Urology. Obtain Physical Therapy Gait evaluation before and after large volume lumbar puncture. Patients should have the above work ups performed prior to consulting Neurosurgery. For Confirmed Normal Pressure Hydrocephalus: Consult Neurosurgery. Reason for Visit Reason Comments Follow Up pt presents for follow up with labs Encounter Details Date Type Department Care Team Description 07/10/2019 Office Visit [place] Dre Siegel MD Spinal stenosis of lumbar region with neurogenic claudication (Primary Dx); Practice [address] Depression with anxiety; [address] [id number] Flu vaccine need; [place] [id number] Attention deficit hyperactivity disorder (ADHD), predominantly inattentive type; [phone] Tobacco use disorder (Fax) Allergies Active Allergy Reactions Severity Noted Date Comments Clarithromycin Other 05/04/2008 Demerol Other 11/17/2007 Cyclobenzaprine Other 08/08/2013 Morphine MOPHEAD SEWER Reaction 04/24/2010 Vision bad; lethargy - muscles shake Alc-Gabapentin Unknown Reaction 09/30/2007 Fd&C Blue #2-Fd&C Red Unknown Reaction 09/30/2007 CHEST / AIRWAY #40-Oxycodone TIGHTNESS RASH Soybean Lecithin-Topiramate MOPHEAD SEWER Reaction 07/25/2010 depression documented as of this encounter (statuses as of 07/10/2019) Medications Medication Sig Dispensed Refills Start Date End Date Status cholecalciferol Take 1 Tab by 90 Tab 3 09/24/2015 Active (VITAMIN D) 1000 mouth DAILY. UNITS Oral Tab ranitidine (ZANTAC) Take 300 mg by 30 Tab 3 05/31/2019 Active 300 MG Oral Tab mouth DAILY. predniSONE TAKE ONE 3 05/09/2019 Active (DELTASONE) 5 MG Oral TABLET BY Tab MOUTH EVERY DAY USE 1 2 OR 1 TABLET BY MOUTH DAILY CARE HOME mirtazapine (REMERON) Take 1 Tab by 30 Tab 1 06/13/2019 Active 15 MG Oral Tab mouth EVERY BEDTIME. HYDROcodone-acetamino Take 1 Tab by 180 Tab 0 06/13/2019 Active phen (NORCO) 10-325 mouth EVERY MG Oral FOUR HOURS TabIndications: NEEDED (pain). Chronic pain disorder Max Daily Amount: 6 Tabs. Amphetamine-Dextroamp Take 1 Tab by 60 Tab 0 06/13/2019 Active hetamine (ADDERALL, mouth TWICE 15MG,) 15 MG Oral Tab DAILY. Max Daily Amount: 30 mg. clonazePAM (KLONOPIN) Take 1 Tab by 30 Tab 0 06/13/2019 Active 0.5 MG Oral mouth TWO TabIndications: TIMES DAILY Depression with NEEDED anxiety (anxiety ). Max Daily Amount: 1 mg. linaCLOtide 290 MCG Take 1 Cap by 30 Cap 3 06/09/2019 Discontinued Oral Cap mouth DAILY. 9 mirtazapine (REMERON) Take 1 Tab by 30 Tab 0 06/13/2019 Discontinued 15 MG Oral Tab mouth EVERY 9 BEDTIME. 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 Overview: Right ulna TB lung, latent 12/25/2012 Systemic lupus erythematosus 12/04/2012 Overview: Erosions on xray but d/s DNA positive and VISHAL weak positive negative C3, C4 Rheumatology Dr Gasca [facility] Aldana Livedo reticularis 12/04/2012 Microscopic hematuria 10/06/2012 Overview: S/p cystoscopy [facility] negative 2010 Depression with anxiety 08/25/2012 Overview: Suicidal ideation 1990s treated fluoxitene, lexapro, venlafaxine, citalopram Failed buproprion due to mood swings Failed duloxitene in past Therapist [place] Justine Miranda [facility] Fibromyalgia 08/11/2012 Overview: Failed lyrica Failed gabapentin Failed topiramate Lumbar disc disease 08/11/2012 Overview: S/p lumbar disc surgery Dr Garnica [facility] 2000 Tubulovillous adenoma of colon 08/29/2009 [...] Diagnosis in her 50s by psychiatrist in [place], [place] Adderal maintenance therapy Breast CA 10/18/1999 Overview: 1998 s/p left mastectomy and s/p Tram flap No chemo or radiation SLE (systemic lupus erythematosus) documented as of this encounter (statuses as of 07/10/2019) Resolved Problems Problem Noted Date Resolved Date Bipolar disorder 10/19/2012 11/08/2012 Narcotic dependence 08/11/2012 10/19/2012 Overview: Hydrocodone 10 mg 6 per day Narcotic contract signed Dr Wills 07/29 Tapered off hydrocodone 09/2012 Rheumatoid arthritis(714.0) 04/27/2011 01/03/2013 Overview: Diagnosis made 2005 Response Prednisone seroneg Plaquenil and methotrexate 2007- [facility] Rheumatology Dept Dr Lawton last seen 2010 Anxiety 07/29/2009 08/25/2012 Unspecified constipation 05/04/2008 08/11/2012 Anorexia 11/17/2007 01/03/2013 documented as of this encounter (statuses as of 07/10/2019) Immunizations Name Administration Dates Next Due Influenza Vaccine 65 Yrs + 07/10/2019 Influenza Vaccine High Dose 11/30/2017 Kenalog (80 [...] Sign Reading Time Taken Comments Blood Pressure 124/64 07/10/2019 2:15 PM EDT Pulse 79 07/10/2019 2:15 PM EDT Temperature - - Respiratory Rate - - Oxygen Saturation 93% 07/10/2019 2:15 PM EDT Inhaled Oxygen Concentration - - Weight 51.3 kg (113 lb) 07/10/2019 2:15 PM EDT Height 167.6 cm (5' 6") 07/10/2019 2:15 PM EDT Body Mass Index 18.24 07/10/2019 2:15 PM EDT documented in this encounter Progress Notes Dre Caicedo MD - 07/10/2019 2:00 PM EDT PATIENT: Lorie Schneider : 1950 DATE OF SERVICE: 07/10/2019 CHIEF COMPLAINT: Chief Complaint Patient presents with Follow Up pt presents for follow up with labs Subjective HISTORY OF PRESENT ILLNESS: Lorie Schneider is a 68-y.o. female. We have been working up several issues. 1 is her weight loss . She was under the impression it wasthe pristiq taking away appetite and depression. We started remeron 1 month ago and she feels little better , I thought may be due to adderall but she had been on that awhile and we have been lookingfor malignancy but CT abd pelvis , chest and thyroid ultrasound all un revealing except for a singlenode in the neck not considered normal but a normal LDH She also had suspicions her pain is causing her weight loss. She reports pain in the low back down the legs. Mri suggested marked stenosis L2-3 and some formainal stenosis to left L2 and some to right L3 She feels pain across the low back and to hips and also abdomen. She is constipated but no incontinence She is on chronic narcotics 6 norco a day Told her years ago I cant go higher would need to got to pain clinic to get different meds Past Medical History: Diagnosis Date Allergic rhinitis [...] Tubulovillous adenoma of colon 08/29/2009 tics in 2015 5 years Unspecified constipation 05/04/2008 Urinary incontinence [...] ASNEEDED (pain). Max Daily Amount: 6 Tabs. mirtazapine (REMERON) 15 MG Oral Tab Take 1 Tab by mouth EVERY BEDTIME. predniSONE (DELTASONE) 5 MG Oral Tab TAKE ONE TABLET BY MOUTH EVERY DAY USE 1 2 OR 1 TABLET BY MOUTH DAILY CARE HOME ranitidine (ZANTAC) 300 MG Oral Tab Take 300 mg by mouth DAILY. No current facility-administered medications for this visit. Allergies Allergen Reactions Biaxin [Clarithromycin] Other Demerol Other Flexeril [Cyclobenzaprine] Other Morphine MOPHEAD SEWER Reaction Vision bad; lethargy - muscles shake Neurontin [Alc-Gabapentin] Unknown Reaction Oxycodone [Fd&C Blue #2-Fd&C Red #40-Oxycodone] Unknown Reaction CHEST / AIRWAY TIGHTNESS RASH Topiramate [Soybean Lecithin-Topiramate] MOPHEAD SEWER Reaction depression Social History Socioeconomic History Marital [...] file Gets together: Not on file Attends adventism service: Not on file Active member of [...] History Narrative Lives with male partner in [place], [place] One grown daughter age 23 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 Physical Exam Constitutional: No distress. Up 3 more lbs Cardiovascular: Normal rate and regular rhythm. Pulmonary/Chest: Effort normal. No respiratory distress. Musculoskeletal: She exhibits no edema. Neurological: DTR and strength equal Negative SLR Vitals reviewed. ASSESSMENT / IMPRESSION: ICD-9-CM ICD-10-CM 1. Spinal stenosis of lumbar region with neurogenic claudication I think the plan should be to see neurosurgeon to see if they feel her marked stenosis requires surgery , she did some PT last year but not recently . If the surgeon not feel she needs surgery then to pain clinic for injections and discuss managing her meds 724.03 M48.062 REFER TO NEUROSURGERY 2. Depression with anxiety Stay on remeron She feels slight better 300.4 F41.8 3. Flu vaccine need V04.81 Z23 [place] FLU VACCINE 65 YRS + 4. Attention deficit hyperactivity disorder (ADHD), predominantly inattentive type would like to gether lower dose but she feels it helps her 314.00 F90.0 5. Tobacco use disorder contributes to her weight loss but no malignancy seen. She will hold on node biopsy 305.1 F17.200 Plan Author: Dre Caicedo MD 07/10/2019 21:29 documented in this encounter Plan of Treatment Name Type Priority Associated Diagnoses Order Schedule REFER TO NEUROSURGERY Referral Routine Spinal stenosis of lumbar Expected: region with neurogenic 07/10/2019, Expires: claudication 07/10/2020 Health Maintenance Due Date Last Done Comments [...] an individualized treatment (depression) goal for Lorie D Dolph: Displayed above is your goal for a depression screening (PHQ-9) score that would indicate good control of your depression. Keep a regular sleep schedule Lifestyle No Dre Caicedo MD Note: This is an individualized lifestyle goal for Lorie D Dolph: Please maintain a regular sleep schedule. This may help with some symptoms of depression. Take all prescribed medications as directed Self-management No Dre Caicedo MD Note: This is an individualized self-management goal for Lorie D Dolph: Please take all prescribed medications as directed. [...] filedocumented in this encounter Visit Diagnoses Diagnosis Spinal stenosis of lumbar region with neurogenic claudication - Primary Spinal stenosis, lumbar region, with neurogenic claudication Depression with anxiety Dysthymic disorder Flu vaccine need Need for prophylactic vaccination and inoculation against influenza Attention deficit hyperactivity disorder (ADHD), predominantly inattentive type Tobacco use disorder documented in this encounter Insurance Payer Benefit Plan / Subscriber ID Effective Dates Phone Address Type Group MEDICARE MEDICARE PART A xxxxxxxxxxx 2016-Present Medicare & B MEDICAID [facility] xxxxxxxx 2016-Present Medicaid [place] MEDICAID (Work) documented as of this encounter
--- NOTE | 2019-07-11 13:13 | ED ---
Abdominal Pain/Female - HPI Summary HPI Summary: This patient is a 68 year old F presenting to [facility] accompanied by male manager of distribution with a chief complaint of abdominal pain since 07/10/19 in PM. Patient states that her abdominal started last night in the PM on 07/10/19. Patient states that she was not able to sleep well with the pain. Patient states that she has no appetite due to pain. The patient rates the pain 8/10 in severity characterized as sharp. Symptoms aggravated by nothing. Symptoms alleviated by nothing. Patient reports weakness and RLQ tenderness. Patient denies vaginal discharge, vaginal bleeding, fever, chills, nausea and vomiting. Patient denies EtOH use and substance abuse. Patient reports tobacco use. Patient has PMHx of MS, Lupus and left mastectomy. Allergies Allergy/AdvReac Type Severity Reaction Status Date / Time NSAIDS (Non-Steroidal Allergy Severe Swelling Verified 07/11/19 15:05 Anti-Inflamma oxycodone Allergy Intermediate Hives Verified 07/11/19 15:05 prednisone Allergy Intermediate Unknown Verified 07/11/19 15:05 Reaction Details gabapentin Allergy Mild Insomnia Verified 07/11/19 15:05 clarithromycin Allergy Unknown Unknown Verified 07/11/19 15:05 Reaction Details cyclobenzaprine Allergy Unknown Unknown Verified 07/11/19 15:05 Reaction Details meperidine Allergy Unknown Unknown Verified 07/11/19 15:05 Reaction Details morphine Allergy Unknown Unknown Verified 07/11/19 15:05 Reaction Details topiramate Allergy Unknown Unknown Verified 07/11/19 15:05 Reaction Details Home Medications Medication Instructions Recorded Confirmed Type Dextroamphetamine/Amphetamine 20 tab PO BID 02/23/14 07/23/17 History [Amphetamine/Dextroampheta] clonazePAM TAB(*) [KlonoPIN TAB(*)] 0.5 mg PO TID PRN 07/19/17 07/23/17 History predniSONE TAB* [Deltasone TAB*] 20 mg PO QAM 07/19/17 07/23/17 History Hydrocodone/Acetamin 10/325(NF 1 tab PO Q4H PRN MDD 4 07/23/17 07/23/17 History [Leadore 10/325 (NF)] Cholecalciferol TAB* [Vitamin D 1,000 units PO DAILY 07/11/19 07/11/19 History TAB*] Mirtazapine TAB* [Remeron TAB*] 15 mg PO BEDTIME 07/11/19 07/11/19 History Ranitidine TAB (NF) [Zantac TAB 300 mg PO DAILY 07/11/19 07/11/19 History (NF)] - History of Current Complaint Chief Complaint: EDAbdPain Stated Complaint: ABD PAIN PER PT Time Seen by Provider: 07/11/19 12:20 Hx Obtained From: Patient ?: No Timing: Constant Severity Currently: Moderate Pain Intensity: 8 Pain Scale Used: 0-10 Numeric Location: Discrete At: RLQ Radiates: No Character: Sharp Aggravating Factor(s): Nothing Alleviating Factor(s): Nothing Associated Signs and Symptoms: Negative: Fever, Constipation, Vaginal Bleeding, Vaginal Discharge, Nausea, Vomiting Allergies/Adverse Reactions: Allergies Allergy/AdvReac Type Severity Reaction Status Date / Time NSAIDS (Non-Steroidal Allergy Severe Swelling Verified 07/11/19 15:05 Anti-Inflamma oxycodone Allergy Intermediate Hives Verified 07/11/19 15:05 prednisone Allergy Intermediate Unknown Verified 07/11/19 15:05 Reaction Details gabapentin Allergy Mild Insomnia Verified 07/11/19 15:05 clarithromycin Allergy Unknown Unknown Verified 07/11/19 15:05 Reaction Details cyclobenzaprine Allergy Unknown Unknown Verified 07/11/19 15:05 Reaction Details meperidine Allergy Unknown Unknown Verified 07/11/19 15:05 Reaction Details morphine Allergy Unknown Unknown Verified 07/11/19 15:05 Reaction Details topiramate Allergy Unknown Unknown Verified 07/11/19 15:05 Reaction Details Home Medications: Home Medications Cholecalciferol TAB* [Vitamin D TAB*] 1,000 units PO DAILY 07/11/19 [History Confirmed 07/11/19] Mirtazapine TAB* [Remeron TAB*] 15 mg PO BEDTIME 07/11/19 [History Confirmed ] Ranitidine TAB (NF) [Zantac TAB (NF)] 300 mg PO DAILY 07/11/19 [History Confirmed 07/11/19] PMH/Surg Hx/FS Hx/Imm Hx Endocrine/Hematology History: Reports: Hx Systemic Lupus Erythematosus Denies: Hx Anticoagulant Therapy, Hx Diabetes, Hx Thyroid Disease Cardiovascular History: Reports: Hx Angina, Hx Hypertension - occasional Denies: Hx Coronary Artery Disease, Hx Hypercholesterolemia, Hx Myocardial Infarction, Hx Pacemaker/ICD, Hx Valvular Heart Disease, Other Cardiovascular Problems/Disorders Respiratory History: Denies: Hx Asthma, Hx Chronic Obstructive Pulmonary Disease (COPD) Comment Only: Other Respiratory Problems/Disorders - HX BILATERAL RIB FX GI History: Reports: Hx Gastroesophageal Reflux Disease Denies: Other GI Disorders History: Denies: Hx Renal Disease Musculoskeletal History: Reports: Hx Arthritis, Hx Back Problems, Other Musculoskeletal History - polymyalgia, fibromyalgia Sensory History: Reports: Hx Cataracts - mild, Hx Contacts or Glasses - glasses Denies: Hx Hearing Aid Opthamlomology History: Reports: Hx Cataracts - mild, Hx Contacts or Glasses - glasses Neurological History: Reports: Hx Migraine - halos, Hx Nerve Disease - ulnar nerve entrapment Denies: Hx Dementia, Hx Seizures, Other Neuro Impairments/Disorders Psychiatric History: Reports: Hx Anxiety - on meds, Hx Eating Disorder - anorexic; pt stated this is not happening now, Hx Depression - on meds Denies: Hx Substance Abuse - Cancer History Cancer Type, Location and Year: breast CA; x2 mastectomy on left breast; lumpectomy and reduction - Surgical History Surgery Procedure, Year, and Place: left Breast removal and augmentation, 1998 and 2000. Back surgery, 2001. Scalp surgery to remove skin cancer, 2002. Wrist surgery for ulnarneuropathy, right, 2010 Hx Anesthesia Reactions: Yes - sodium pentathol - Immunization History Date of Tetanus Vaccine: UNKNOWN Date of Influenza Vaccine: NO Infectious Disease History: No Infectious Disease History: Reports: Hx Shingles - not active. "just getting over" Denies: Hx Hepatitis, Hx Human Immunodeficiency Virus (HIV), Traveled Outside the [place] in Last 30 Days - Family History Known Family History: Positive: Diabetes, Renal Disease - Social History Alcohol Use: None Hx Substance Use: No Substance Use Type: Reports: None Hx Tobacco Use: Yes Smoking Status (MU): Heavy Every Day Tobacco Smoker Type: Cigarettes Amount Used/How Often: pack a day for 51 years Have You Smoked in the Last Year: Yes Review of Systems Negative: Fever, Chills Positive: Abdominal Pain. Negative: Vomiting, Nausea Negative: discharge - vaginal discharge or vaginal bleeding Positive: Weakness All Other Systems Reviewed And Are Negative: Yes Physical Exam - Summary Physical Exam Summary: Constitutional: Well-developed, Well-nourished, Alert. (-) Distressed Skin: Warm, Dry HENT: Normocephalic; Atraumatic Eyes: Conjunctiva normal Neck: Musculoskeletal ROM normal neck. (-) JVD, (-) Stridor, (-) Tracheal deviation Cardio: Rhythm regular, rate normal, Heart sounds normal; Intact distal pulses; The pedal pulses are 2+ and symmetric. Radial pulses are 2+ and symmetric. (-) Murmur Pulmonary/Chest wall: Effort normal. (-) Respiratory distress, (-) Wheezes, (-) Rales Abd: Soft, RLQ tenderness worse at mid bernies point, (-) Distension, (-) Guarding, (-) Rebound Musculoskeletal: (-) Edema, no pain with heel percussion. Lymph: (-) Cervical adenopathy Neuro: Alert, Oriented x3 Psych: Mood and affect Normal Triage Information Reviewed: Yes Vital Signs On Initial Exam: Initial Vitals Temp Pulse Resp BP Pulse Ox 98.3 F 96 17 122/68 100 07/11/19 12:15 07/11/19 12:15 07/11/19 12:15 07/11/19 12:15 07/11/19 12:15 Vital Signs Reviewed: Yes Diagnostics - Vital Signs Vital Signs Temp Pulse Resp BP Pulse Ox 07/11/19 12:39 81 124/67 100 07/11/19 12:25 82 130/70 100 07/11/19 12:24 85 100 07/11/19 12:15 98.3 F 96 17 122/68 100 - Laboratory Lab Results: Lab Results 07/11/19 07/11/19 Range/Units 12:40 12:40 WBC 10.3 (3.5-10.8) 10^3/uL RBC 4.23 (3.70-4.87) 10^6 /uL Hgb 12.2 (12.0-16.0) g/dL Hct 37 (35-47) % MCV 87 (80-97) fL MCH 29 (27-31) pg MCHC 33 (31-36) g/dL RDW 14 (10-15) % Plt Count 243 (150-450) 10^3/uL MPV 8.6 (7.4-10.4) fL Neut % (Auto) 77.2 % Lymph % (Auto) 13.6 % [place] % (Auto) 6.8 % Eos % (Auto) 2.2 % Baso % (Auto) 0.2 % Absolute Neuts (auto) 8.0 H (1.5-7.7) 10^3/ul Absolute Lymphs (auto) 1.4 (1.0-4.8) 10^3/ul Absolute Monos (auto) 0.7 (0-0.8) 10^3/ul Absolute Eos (auto) 0.2 (0-0.6) 10^3/ul Absolute Basos (auto) 0.0 (0-0.2) 10^3/ul Absolute Nucleated RBC 0.0 10^3/ul Nucleated RBC % 0.0 Sodium 138 (135-145) mmol/L Potassium 3.9 (3.5-5.0) mmol/L Chloride 107 (101-111) mmol/L Carbon Dioxide 28 (22-32) mmol/L Anion Gap 3 (2-11) mmol/L BUN 19 (6-24) mg/dL Creatinine 0.73 (0.51-0.95) mg/dL Est GFR ( Amer) 96.2 (>60) Est GFR (Non-Af Amer) 79.5 (>60) BUN/Creatinine Ratio 26.0 H (8-20) Glucose 106 H (70-100) mg/dL Calcium 9.4 (8.6-10.3) mg/dL Total Bilirubin 0.50 (0.2-1.0) mg/dL AST 17 (13-39) U/L ALT 11 (7-52) U/L Alkaline Phosphatase 52 (34-104) U/L C-Reactive Protein 36.30 H (<8.01) mg/L Total Protein 6.5 (6.4-8.9) g/dL Albumin 3.9 (3.2-5.2) g/dL Globulin 2.6 (2-4) g/dL Albumin/Globulin Ratio 1.5 (1-3) Result Diagrams: 07/11/19 12:40 07/11/19 12:40 Lab Statement: Any lab studies that have been ordered have been reviewed, and results considered in the medical decision making process. - CT Abdomen/Pelvis CT CT Interpretation Completed By: Radiologist Summary of CT Findings: Abdomen/Pelvis CT reveals, per radiologist, IMPRESSION: Findings consistent with appendicitis. No periappendiceal abscess is noted. ED Physician has reviewed this report. Abdominal Pain Fem Course/Dx - Course Course Of Treatment: Patient is here with right lower quadrant pain. Patient had a laboratory performed which was grossly unremarkable outside of an elevated CRP. Patient had a CT scan which showed acute appendicitis. Patient was admitted to surgery. - Diagnoses Provider Diagnoses: Acute appendicitis Is Visit Related: No - Provider Notifications Discussed Care Of Patient With: Martinez Garcia - Hospitalist Time Discussed With Above Provider: 16:27 Instructed by Provider To: Other - Dr. Garcia accepts patient for admission. Discharge ED - Sign-Out/Discharge Documenting (check all that apply): Patient Departure - admitted Patient Received Moderate/Deep Sedation with Procedure: No - Discharge Plan Condition: Stable Disposition: ADMITTED TO [facility] - Billing Disposition and Condition Condition: STABLE Disposition: Admitted to [facility] - Attestation Statements Document Initiated by Shamir: Yes Documenting Scribe: Ludy Rivera Provider For Whom Shamir is Documenting (Include Credential): Dr. Burke Perez MD Scribe Attestation: Ludy Bonner scribed for Dr. Burke Perez MD on 07/11/19 at 2016. Scribe Documentation Reviewed: Yes Provider Attestation: The documentation as recorded by the Ludy cadet accurately reflects the service I personally performed and the decisions made by me, Dr. Burke Perez MD Status of Scribe Document: Viewed
[2019-07-11 15:39] LABS: Urine Appearance Clear; Urine Bilirubin Negative (Negative); Urine Blood Negative (Negative); Urine Color Straw; Urine Glucose Negative (Negative); Urine Ketones Negative (Negative); Urine Nitrite Negative (Negative); Urine Protein Negative (Negative); Urine Specific Gravity 1.004 (1.010-1.030); Urine Urobilinogen Negative (Negative)
--- NOTE | 2019-07-11 16:49 | HP ---
H&P (Free Text) History and Physical: CC: abdominal pain HPI: 68 yo F with multiple medical problems presented to [facility] ED with abdominal pain starting 9pm on 07/10. Initially periumbilical now localized to RLQ and associated with anorexia; no N/V/D. Denies F/C. Denies dysuria/hematuria. Has chronic constipation as is on narcotics for back pain. She slept poorly and came to ED this am when she noted pain was severe. Provoking factors: movement. Palliating factors: morphine IV. No similar pain in past. No recent travel or sick contacts. She has h/o 20# wt loss over 3 mos and had recent EGD and colonoscopy through [facility]. PMH: chronic back pain, spinal stenosis, microscopic hematuria (prior negative w/u by Urology), L breast ca, latent TB (treated with INH), COPD, Gastritis, SLE , Colon polyps, diverticulosis, Basal cell ca (scalp) PSH: L breast WLE and implant; L MRM and tram flap; R breast bx; wrist surgery ; lumbar laminectomy MEDS: Ranitidine 300mg po daily, prednisone 20 mg po qam, mirtazapine 15 mg po qhs, clonazepam 0.5mg po bid prn, norco 10/325 q4h prn, vitamin D 1,000IU daily , amphetamine/dextroamphetamine 1 tab po daily ALL: NSAIDs cause LE edema but she takes sparingly; oxycodone; gabapentin; clarithromycin; cyclobenzaprine; topiramate SH: +tob (50+ pk/yr); -EtOH; -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 Mother age 94 of CVA; Brother alive age 64 (diverticular disease) ROS: As above; 14 pt review completed and otherwise negative. PE: Vital Signs Temp 98.3 F 07/11/19 12:15 Pulse 74 07/11/19 15:27 Resp 18 07/11/19 15:24 BP 125/73 07/11/19 15:27 Pulse Ox 98 07/11/19 15:27 Gen: thin, NAD HEENT: NCAT; EOMI; no otorhinorrhea; upper denture. Neck: supple; no ALLI; no JVD. Lungs: CTA B Heart: reg s1s2; no murmurs Abd: decr BS; ND; scars from prior tram flap; tender in RLQ>LLQ; soft. Ext: warm; no CT; no edema Neuro: no focal deficit noted Psych: normal affect Laboratory Results - last 24 hr 07/11/19 07/11/19 07/11/19 12:40 12:40 15:25 WBC 10.3 RBC 4.23 Hgb 12.2 Hct 37 MCV 87 MCH 29 MCHC 33 RDW 14 Plt Count 243 MPV 8.6 Neut % (Auto) 77.2 Lymph % (Auto) 13.6 [place] % (Auto) 6.8 Eos % (Auto) 2.2 Baso % (Auto) 0.2 Absolute Neuts (auto) 8.0 H Absolute Lymphs (auto) 1.4 Absolute Monos (auto) 0.7 Absolute Eos (auto) 0.2 Absolute Basos (auto) 0.0 Absolute Nucleated RBC 0.0 Nucleated RBC % 0.0 Sodium 138 Potassium 3.9 Chloride 107 Carbon Dioxide 28 Anion Gap 3 BUN 19 Creatinine 0.73 Est GFR ( Amer) 96.2 Est GFR (Non-Af Amer) 79.5 BUN/Creatinine Ratio 26.0 H Glucose 106 H Calcium 9.4 Total Bilirubin 0.50 AST 17 ALT 11 Alkaline Phosphatase 52 C-Reactive Protein 36.30 H Total Protein 6.5 Albumin 3.9 Globulin 2.6 Albumin/Globulin Ratio 1.5 Urine Color Straw Urine Appearance Clear Urine pH 8.0 Ur Specific Simpson 1.004 L Urine Protein Negative Urine Ketones Negative Urine Blood Negative Urine Nitrate Negative Urine Bilirubin Negative Urine Urobilinogen Negative Ur Leukocyte Esterase Negative Urine Glucose Negative CT images reviewed and findings c/w acute appendicitis. No abscess. Impression: 68 yo F with multiple medical problems and now acute appendicitis. Plan/recommendation: Laparoscopic appendectomy. The nature of the procedure, indications, risks, benefit, alternatives and option of no treatment were discussed. Expectations regarding hospitalization and recovery were discussed. Management of postoperative pain was discussed and she agreed she could use NSAIDs on a limited basis. Risks explained including, not limited to: bleeding , infection, pain, scars, blood clots, pneumonia, visceral injury, open surgery , risks of GETA and . All questions were answered. She stated understanding and agreed to proceed. NPO IVF cont steroids
--- NOTE | 2019-07-11 19:00 | BRIEFOPN ---
Brief Operative/Procedure Note - Operation Details Pre-Op Diagnosis: ACUTE APPENDICITIS Post-Op Diagnosis: SAME Procedures: LAP APPENDECTOMY Surgeon(s)/Proceduralists: SONAL Anesthesia: GET; FELLOWS Estimated Blood Loss: <10ML Findings: EARLY SUPPURATIVE APPENDICITIS Specimen(s)/Culture(s) Description: APPENDIX Complications: NONE
[2019-07-11 19:20] VITALS: BP 170/83
[2019-07-11] MEDS: fentaNYL* 50 MCG/ML 2 ML VIAL (100 MCG VIAL) IV PRN ×2 (19:59→20:13)
--- NOTE | 2019-07-12 00:26 | OP ---
DATE OF OPERATION: 07/11/19 - [facility] DATE OF : 52 SURGEON: Martinez Garcia MD [employer] OPERATOR: None. ANESTHESIOLOGIST: Dr. Jerome Sierra. ANESTHESIA: General endotracheal. PRE-OP DIAGNOSIS: Acute appendicitis. POST-OP DIAGNOSIS: Acute appendicitis. OPERATIVE PROCEDURE: Laparoscopic appendectomy. ESTIMATED BLOOD LESS: Minimal. IV FLUIDS: 700 mL crystalloid. SPECIMEN: Appendix. DRAINS: None. COMPLICATIONS: None. COUNTS: Instrument, needle, and sponge counts were correct. DESCRIPTION OF PROCEDURE: The patient was brought to the operating room and placed on table supine. Sequential compression devices were placed on both lower extremities. General anesthesia was administered. Appropriate intravenous antibiotics were administered. She was prepped and draped in the usual sterile fashion. Time-out was performed. Local anesthetic was infiltrated into the skin and soft tissue prior to making each incision. An open technique was used to access the peritoneal cavity using an infraumbilical vertical midline incision. After accessing the peritoneal cavity, a 12-mm trocar was placed. Carbon dioxide was insufflated to a pressure of 15 mmHg. Under direct visualization, 5-mm trocars were placed in the suprapubic midline and left lower quadrant. The appendix was identified. It appeared to be acutely inflamed with early separative changes. The appendix was elevated and single firing of the Endo TROY stapler with a rocha staple cartridge was used to divide the appendix and the mesentery of the appendix. Staple line was inspected and noted to intact and hemostatic. Specimen was placed into retrieval bag retrieved through the umbilical site. Again, hemostasis was assured. Ports removed under direct visualization. Carbon dioxide was released. Infraumbilical wound was closed with 0 Vicryl in an interrupted kinzom-st-otwyl fashion to approximate the fascia. The skin incisions were closed with 4-0 Monocryl in subcuticular fashion. Steri-strips were applied. The patient was awakened and extubated and transferred to Recovery in stable condition. [id number]/[facility] #: [id number] [facility] HOSPITALDamir
== END | disposition home or self-care (01) ==
LOC: ED 12:13 → OR 17:54
PROVIDERS: ATTEND Surgery
DX: K35.80 Unspecified acute appendicitis (principal); R10.31 Right lower quadrant pain; Z72.0 Tobacco use; M32.9 Systemic lupus erythematosus, unspecified; Z85.3 Personal history of malignant neoplasm of breast; Z85.828 Personal history of other malignant neoplasm of skin; M54.9 Dorsalgia, unspecified; F11.90 Opioid use, unspecified, uncomplicated
CPT/HCPCS: 36415; 74177; 80053; 81003; 85025; 86140; 88304; 93005; 96361; 96374; 99285; C1776; J0694; J0780; J1100; J2250; J2270; J2704; J3010; Q9967

== ENCOUNTER 2022-10-12 15:02 | Observation (INO) ==
[~2022-10-12 15:02] MED LIST changes: +Bupivacaine 0.25% SDV 30 ML ONE; -Bupivacaine 0.25% W/EPI* 10 ML SDV ONE; -Dexamethasone IV* 4 MG/ML 1 ML (4 MG) ONE; -DiMENhydriNATE IV* 50 MG/ML VIAL IV PUSH PRN; -Famotidine IV* 10 MG/ML 2 ML (20 mg) ONE; +Gentamicin ADULT 40 MG/ML VIAL (2 ML VIAL = 80 MG) ONE; -HYDROcodone/ACETAMIN 5-325 MG* 1 TAB ONE; -HYDROcodone/ACETAMIN 5-325 MG* 1 TAB PO PRN; -HYDROmorphone INJ1* 1 MG/ML SYRINGE IV PRN; -HYDROmorphone INJ1* 1 MG/ML SYRINGE IV SLOW PU PRN; -Iohexol 300* (CONTRAST) 10 ML SDV IV ONE; -KETAMINE HCL* 50 MG/ML 10 ML VIAL ONE; -Lactated Ringers 1000 ML Bag* 1,000 ML IV SCH; +Lidocaine 1% VIAL 10 MG/ML VIAL 30 ML ONE; -Lidocaine 2% PF * 5 ML VIAL ONE; -Midazolam* 1 MG/ML 5 ML VIAL (5 MG) ONE; -Morphine 4 MG/ML VIAL (1 ml) 4 MG/ML VIAL IV ONE; -NS 0.9% 1000 ML** 1,000 ML IV ONE; -Naloxone* 0.4 MG/ML 1 ML VIAL IV PRN; -Ondansetron INJ* 2 MG/ML VIAL IV PRN; -PROCHLORPERAZINE INJ 5 MG/ML 2 ML VIAL IV PRN; -PROCHLORPERAZINE INJ 5 MG/ML 2 ML VIAL ONE; -Propofol* 10 MG/ML 20 ML BTL ONE; -Rocuronium* 10 MG/ML VIAL ONE; -Sugammadex * 500 MG/5 ML VIAL IV PUSH ONE; +Vancomycin 1,000 MG VIAL ONE; +ceFAZolin VIAL VIAL ONE; -ceFOXitin 2 GM IVPREMIX* 2 GM/50 ML BAG IVPB ONE; -ceFOXitin 2 GM IVPREMIX* 2 GM/50 ML BAG ONE; -fentaNYL* 50 MCG/ML 2 ML VIAL (100 MCG VIAL) ONE
[2022-10-12] MEDS ORDERED: Midazolam 5 mg/5 ml VIAL 1 mg/ml 5 ml VIAL (5 mg) ONE (15:49)
[2022-10-12] MEDS ORDERED: ceFAZolin 2 GM PREMIX 2 GM/50 ML BAG ONE (16:10)
[2022-10-12 16:15] LABS: Activated Partial Thrombo Time 33.3 seconds (26.0-38.0)
[2022-10-12] MEDS ORDERED: Naloxone 0.4 mg VIAL 0.4 mg/ml 1 ml VIAL IV PRN (16:36)
[2022-10-12] MEDS ORDERED: HYDROcodone/ACETAMIN 5/325 mg TAB PO PRN (16:36)
[2022-10-12] MEDS ORDERED: Ondansetron 4 mg VIAL 2 MG/ML 2 ml VIAL IV PRN ×2 (16:36→18:14)
[2022-10-12 16:44] LABS: C Reactive Protein 3.49 mg/L (<8.01); Calcium 9.6 mg/dL (8.6-10.3); Potassium 4.2 mmol/L (3.5-5.0); eGFR CKD-EPI 90.8 (>60)
[2022-10-12] MEDS ORDERED: fentaNYL 100 mcg/2 ml 50 MCG/ML VIAL ONE (17:03)
[2022-10-12 17:29] LABS: Erythrocyte Sed Rate 16 mm/Hr (0-29)
[2022-10-12] MEDS ORDERED: HYDROcodone/ACETAMIN 5/325 mg TAB ONE (17:35)
[2022-10-12 18:01] LABS: ABS Basophils 0.1 10^3/ul (0-0.2); ABS Eosinophils 0.1 10^3/ul (0-0.6); ABS Lymphocytes 2.3 10^3/ul (1.0-4.8); ABS Monocytes 0.5 10^3/ul (0-0.8); ABS Neutrophils 6.3 10^3/ul (1.5-7.7); Hematocrit 39 % (35-47); Lymphocyte % 24.6 %; Mean Corpuscular HGB Conc 34 g/dL (31-36); Mean Corpuscular Hemoglobin 28 pg (27-31); Mean Corpuscular Volume 83 fL (80-97); Mean Platelet Volume 8.6 fL (7.4-10.4); Nucleated Red Blood Cells % 0.1; Platelet Count 258 10^3/uL (150-450); Red Blood Count 4.67 10^6 /uL (3.70-4.87); Red Cell Distribution Width 14 % (10-15); White Blood Count 9.2 10^3/uL (3.5-10.8)
[2022-10-12] MEDS: HYDROcodone/Acetamin 10/325 TAB (NF) PO PRN (20:25)
[2022-10-12] MEDS ORDERED: FLUTICAS/UMECLI/VILANT 100-62.5-25 MDI (NF) INH SCH (21:00)
[2022-10-13 03:08] LABS: ABS Lymphocytes 0.8 10^3/ul (1.0-4.8); ABS Monocytes 0.1 10^3/ul (0-0.8); ABS Neutrophils 4.7 10^3/ul (1.5-7.7); Hematocrit 37 % (35-47); Hemoglobin 12.3 g/dL (12.0-16.0); Lymphocyte % 13.6 %; Mean Corpuscular HGB Conc 33 g/dL (31-36); Mean Corpuscular Hemoglobin 28 pg (27-31); Mean Corpuscular Volume 83 fL (80-97); Mean Platelet Volume 8.4 fL (7.4-10.4); Nucleated Red Blood Cells % 0.1; Platelet Count 253 10^3/uL (150-450); Red Blood Count 4.44 10^6 /uL (3.70-4.87); Red Cell Distribution Width 13 % (10-15); White Blood Count 5.6 10^3/uL (3.5-10.8)
[2022-10-13 03:29] LABS: C Reactive Protein 3.99 mg/L (<8.01); Calcium 9.2 mg/dL (8.6-10.3); Potassium 4.3 mmol/L (3.5-5.0); eGFR CKD-EPI 68.3 (>60)
[2022-10-13 04:19] LABS: Erythrocyte Sed Rate 18 mm/Hr (0-29)
[2022-10-13] MEDS: HYDROcodone/Acetamin 10/325 TAB (NF) PO PRN (10:12)
[2022-10-13 11:25] VITALS: BP 112/64
== END 2022-10-13 13:55 | disposition home or self-care (01) ==
LOC: SSU 15:02 → OR 15:02
PROVIDERS: ADMIT Anesthesiology Pain Medicine; ATTEND Anesthesiology Pain Medicine